=== PATIENT | female | born 1975 | race Caucasian/White ===

== ENCOUNTER 2021-05-07 05:28 | Outpatient (CLI) | payer SELFPAY ==
[~2021-05-07] VITALS: Ht 147.3 cm; Wt 81.8 kg
[2021-05-08] MEDS ORDERED: LISI5TAB20 PO (12:21)
[2021-05-08] MEDS ORDERED: NF-NORETH5 PO (12:21)
[2021-05-08] MEDS ORDERED: FERR325T18 PO (12:21)
== END 2021-05-08 12:50 ==
LOC: PREOP 05:28
PROVIDERS: ATTEND Obstetrics & Gynecology
DX: Z01.818 Encounter for other preprocedural examination (principal)

== ENCOUNTER 2021-05-14 07:08 | Day surgery (SDC) | payer BC, OTHER ==
[~2021-05-14] VITALS: Ht 147.3 cm; Wt 81.8 kg
[2021-05-14] VITALS (12 sets, daily range): BP systolic 139–198; BP diastolic 74–112
[~2021-05-14 07:08] MED LIST: FERR325T18 PO; LISI5TAB20 PO; NF-NORETH5 PO
[2021-05-14 07:29] LABS: BILIRUBIN,URINE NEGATIVE (NEGATIVE); COLOR,URINE RED; GLUCOSE, URINE (UA) NEGATIVE (NEGATIVE); KETONES,URINE 1+ (NEGATIVE); LEUKOCYTE ESTERASE ,URINE 2+ (NEGATIVE); NITRITE,URINE POSITIVE (NEGATIVE); PROTEIN,URINE 2+ (NEGATIVE)
[2021-05-14 07:44] LABS: BACTERIA,URINE FEW /HPF; RBC,URINE TNTC /HPF
[2021-05-14 07:45] LABS: SQUAMOUS EPITHELIAL CELL,UR RARE /HPF
[2021-05-14] MEDS ORDERED: MIDAZOLAM 2 MG/2 ML (VERSED) VIAL ONE ×2 (07:51→07:55)
[2021-05-14] MEDS ORDERED: ceFAZolin 2 GM IV Premixed 50 ML ONE (07:52)
[2021-05-14 07:54] LABS: BASOPHILS # (AUTO) 0.1 10^3/uL (0.0-0.1); BASOPHILS % (AUTO) 1 % (0-10); EOSINOPHILS # (AUTO) 0.2 10^3/uL (0.0-0.3); EOSINOPHILS % (AUTO) 2 % (0-10); HEMATOCRIT 41 % (35-52); LYMPHOCYTES # (AUTO) 1.8 10^3/uL (1.0-4.0); LYMPHOCYTES % (AUTO) 20 % (12-44); MEAN CORPUSCULAR HEMOGLOBIN 26 pg (25-34); MEAN CORPUSCULAR HGB CONC 32 g/dL (32-36); MEAN CORPUSCULAR VOLUME 81 fL (80-99); MEAN PLATELET VOLUME 10.5 fL (9.0-12.2); MONOCYTES # (AUTO) 0.7 10^3/uL (0.0-1.0); MONOCYTES % (AUTO) 7 % (0-12); NEUTROPHILS # (AUTO) 6.3 10^3/uL (1.8-7.8); NEUTROPHILS % (AUTO) 70 % (42-75); PLATELET COUNT 327 10^3/uL (130-400)
[2021-05-14] MEDS ORDERED: fentaNYL INJ 100 MCG/2 ML AMP ONE (07:55)
[2021-05-14] MEDS ORDERED: LIDOCAINE PF 2% 5 ML (XYLOCAINE) VIAL ONE (07:55)
[2021-05-14] MEDS ORDERED: ONDANSETRON 4 MG/2 ML (SDV) Z0FRAN ONE (07:55)
[2021-05-14] MEDS ORDERED: SEVOFLURANE (ULTANE) 15 ML INHAL SOLN ONE ×2 (07:55→11:32)
[2021-05-14] MEDS ORDERED: proPOfol 200 MG/20 ML (DIPRIVAN) VIAL IV ONE (07:55)
[2021-05-14] MEDS ORDERED: ROCURONIUM 10 MG/ML 5 ML SYRINGE IV ONE (07:55)
[2021-05-14 08:00] LABS: CLARITY,URINE SL CLOUDY
[2021-05-14] MEDS: LACTATED RINGERS 1,000 ML IV PRN ×2 (08:10→09:59)
[2021-05-14] MEDS ORDERED: ceFAZolin 2 GM IV Premixed 50 ML IV ONE (08:15)
[2021-05-14] MEDS ORDERED: MIDAZOLAM 2 MG/2 ML (VERSED) VIAL IVP ONE (08:15)
--- NOTE | 2021-05-14 08:54 | Progress Note-Pre Operative ---
Pre-Operative Progress Note H&P Reviewed The H&P was reviewed, patient examined and no changes noted. Date Seen by Provider: May 14, 2021 Time Seen by Provider: 07:15 Date H&P Reviewed: May 14, 2021 Time H&P Reviewed: 07:15 Pre-Operative Diagnosis: UTERINE FIBROIDS ISABEL ALFORD DO May 14, 2021 08:53
[2021-05-14] MEDS ORDERED: BUPIVACAINE 0.5% 30 ML (SENSORCAINE) VIAL ONE (09:30)
[2021-05-14] MEDS ORDERED: GLYCOPYRROLATE 0.2 MG/ML (ROBINUL) 2 ML VIAL ONE (11:10)
[2021-05-14] MEDS ORDERED: NEOSTIGMINE 3 MG/3 ML VIAL ONE (11:10)
--- NOTE | 2021-05-14 11:27 | Operative Report ---
Operative Report Date of Procedure/Surgery May 14, 2021 Surgeon (s) ISABEL ALFORD DO [employer]vest Crew Supervisor (s): NA Post-Operative Diagnosis uterine fibroids, enlarged uterus, boggy uterus, bilateral hydrosalpinges, bilateral peritubal cysts perirectal and colonic adhesions 349 grams Procedure Performed RaTH, bilateral salpingectomy, excision of peritubal cysts > 250 grams Description of Procedure Anesthesia Type: General Estimated blood loss (mL): 100 Specimen(s) collected/removed uterus, bilateral tubes and peritubal cysts Description of the Procedure After informed consent was obtained, patient was taken into the operating room where general anesthetic was found to be adequate. She was prepped and draped in the usual sterile fashion in the dorsal lithotomy position. A Angel catheter was placed. A speculum was placed in the vagina. The cervix was visualized and the anterior lip was grasped with a sharp toothed tenaculum. The uterus was sounded and depth was approximately 8 centimeters. I placed the Maryan device (8 cm) and a 4.0 cm collar was advanced over the cervix. the cervix was wide and irregular with naothian cysts. There was a large cyst on the anterior lip that cause the cervix to appear prolapsed further than it is. But it does prolapse to 1 cm inside the introitus. I inserted the Maryan without difficulty, inflating the balloon and securing it around the fornix of the cervix. The collar was then secured with sutures at 12 o'clock. Attention was then turned to the patient's abdomen. The skin was injected with 0.5% Marcaine. A supraumbilical incision was made about 8 mm in length. A Veress needle was inserted and I confirmed intraabdominal placement with a drop in pressure and the saline drop test. The opening pressure was 8 mmHg. I then insufflated the abdomen to a maximum of 15 mmHg with warmed CO2 gas. I placed an additional 8 mm trocar approximately 15 cm lateral to the umbilicus on the left. The second robotic port was placed about 15 cm lateral to the right of the umbilical placement. This was an 8 mm trocar. These were placed under direct visualization of the laparoscope. 0.5% Marcaine was injected prior to placement of all trocars. I confirmed that the procedure could be completed robotically. The uterus was quite large. Large that anticipated as it is boggy and retroflexed. approximately 18-20 weeks sized. As she is quite short waisted, the supraumbilical port was just above the fundus. Due to the size and concern that it may be difficult to remove intact through the vagina, I placed an additional 12 mm trocar in the right upped quadrant to allow an assist port. This was placed under direct visualization. When all placements were confirmed, the patient was placed in steep Trendelenburg allowing adequate visualization and the robot was brought in for docking. The docking was accomplished without difficulty. I then took over the command of the robot utilizing the synchroseal and mon opolar debra. I proceeded with a bilateral salpingectomy. She has had a previous partial salpingectomy and the proximal ends of the tubes appeared dilated (hydrosalpinx). I addition, there were several peritubal cysts on each tubal remnant. In addition there apeared to be a cyst arising from the left ovary, but after some dissection, it was noted that this was a peritubal cyst that was adherent to the ovary. At this point, I incised the mesosalpinx bilaterally with the monopolar debra. Then I grasped the round ligaments bilaterally and cauterized with bipolar cautery and then cut with my debra. I then grasped the uterine ovarian ligaments separately bilaterally and cauterized and cut with the synchroseal. I then moved my dissection to the posterior leaves of the broad ligament. I dissected the posterior leaves of the broad ligament off the uterine arteries skeletonizing them bilaterally. There were some filmy adhesions in the posterior culdesac and an summer masters window on the right, but no evidence of endometriosis. There were some filmy adhesions of the rectum to the culdesac and the left pelvis and some of the lower descending colon to the same area. These were taken down bluntly. I then took a second clamp with the synchroseal and with the debra, transected the vessels away from the lateral aspect to the cervical stroma. I dissected the anterior peritoneum off the lower uterine segment. I gently pushed the bladder back off the lower uterine segment. I then dissected in a V fashion towards the midline between the uterosacral ligaments. This allowed me to skeletonize the uterine vessels bilaterally. The balloon on the MARYAN was insufflated. This allowed me to see the MARYAN circumferentially. I then performed a colpotomy posteriorly and then amputated the cervix away from the vaginal fornix. I then continued the colpotomy circumferentially. At this point, the uterus was removed through the vagina. There was concern that the uterus was too large to remove vaginally, but this was completed fairly easily and the right upper quadrant port was not needed. The tiler's assistant left a sponge in the vagina to keep the pneumoperitoneum. I then began closure of the vaginal cuff. I closed the apices of the vaginal cuff with 2-0 Vicryl V lock sutures with a colposuspension through the uterosacral ligaments. This suspended the apices of the vaginal cuff. I extended this to the midline from both sides and overlapped the V lock sutures in the midline. Excellent closure is noted and hemostasis is achieved. All the needles were removed from the patient's abdomen. Now, the robotic instruments were removed and the robot was docked back to laparoscopy. The pelvis was irrigated. There was no active bleeding noted. Bilateral ureters were seen the entire time during the surgery and were peristalsing. There was no excessive bleeding noted. The trocars were removed under direct visualization. The laparoscopic sites were visualized and found to be hemostatic. The trocar sites were injected with 0.5% Marcaine. The right upper quadrant fascial incision was closed with a figure of eight stitch of 0-Vicryl. The skin incisions were closed with 4-0 Monocryl in a subcuticular fashion and then with Dermabond. Op sites were placed over the incision sites. The instruments were removed from the vagina and I noted there were no abrasions. Sponge, lap, needle and instrument counts correct times two. Patient was awakened and taken to recovery in a stable condition. Findings of the Procedure enlarged boggy uterus, 4 cm/8 cm nabothian cysts on cervix bilateral hydrosalpinges bilateral peritubal cysts adhesions of the left tube and ovary filmy perirectal and pericolonic adhesions summer masters window on the right Allergies and Home Medications Allergies Coded Allergies: hydrocodone (Verified Allergy, Unknown, nausea/vomiting, 05/08/21) Patient Home Medication List Home Medication List Reviewed: Yes Ferrous Sulfate (Ferrous Sulfate) 325 Mg Tablet, 325 MG PO DAILY, (Reported) Entered as Reported by: ESTUARDO MEDINA on 05/08/21 1221 Lisinopril (Lisinopril) 5 Mg Tablet, 5 MG PO DAILY, (Reported) Entered as Reported by: ESTUARDO MEDINA on 05/08/21 1221 Norethindrone (Norethindrone Acetate) 5 Mg Tab, 5 MG PO DAILY, (Reported) Entered as Reported by: ESTUARDO MEDINA on 05/08/21 1221 ISABEL ALFORD DO May 14, 2021 11:27
[2021-05-14] MEDS ORDERED: ONDANSETRON 4 MG (ZOFRAN) ORAL DISSOLVE TAB PO PRN (11:30)
[2021-05-14] MEDS ORDERED: CHLORASEPTIC LOZENGE MM PRN (11:30)
[2021-05-14] MEDS ORDERED: morphine INJ 4 MG/ML 1 ML (VIAL/SYRINGE) IV PRN (11:30)
[2021-05-14] MEDS ORDERED: NALOXONE 0.4 MG/ML 1 ML (NARCAN) VIAL IV PRN (11:30)
[2021-05-14] MEDS ORDERED: KETOROLAC 30 MG/ML VIAL ONE (11:42)
[2021-05-14] MEDS ORDERED: ONDANSETRON 4 MG/2 ML (SDV) Z0FRAN IVP PRN (11:45)
[2021-05-14] MEDS ORDERED: HYDROmorphone 2 MG/ML VIAL (DILAUDID) IV ONE (11:45)
[2021-05-14] MEDS ORDERED: morphine INJ 10 MG/ML 1ML (SYR OR VIAL) IVP ONE (11:45)
[2021-05-14] MEDS ORDERED: KETOROLAC 30 MG/ML VIAL IVP ONE (11:45)
[2021-05-14] MEDS ORDERED: MEPERIDINE (DEMEROL) INJ 50 MG/ML IVP ONE (11:45)
[2021-05-14] MEDS ORDERED: HYDROmorphone 2 MG/ML VIAL (DILAUDID) ONE (11:50)
[2021-05-14] MEDS: LACTATED RINGERS 1,000 ML IV SCH ×2 (12:57→16:44)
[2021-05-14] MEDS ORDERED: lisINopril 5 MG (PRINIVIL) TABLET PO NR (13:15)
[2021-05-14] MEDS: ACETAMINOPHEN 500 MG TAB (TYLENOL) PO SCH ×2 (14:59→21:26)
[2021-05-14] MEDS: SIMETHICONE 80 MG (MYLICON) CHEW PO PRN (16:42)
[2021-05-14] MEDS ORDERED: IBUP-844 PO (18:14)
[2021-05-14] MEDS ORDERED: SMT80CT PO (18:14)
[2021-05-14] MEDS ORDERED: ACET-93 PO (18:14)
[2021-05-14] MEDS ORDERED: ONDA4TAB11 PO (18:14)
[2021-05-14] MEDS ORDERED: DOCU100C37 PO (18:14)
--- NOTE | 2021-05-14 18:16 | Discharge Inst-Women's Service ---
Discharge Inst-Women's Serv Depart Medication/Instructions New, Converted or Re-Newed RX: Transmitted to Pharmacy (oxycodone transmitted from office) Final Diagnosis abnormal uterine bleeding uterine fibroids hydrosalpinges paratubal cysts hypertension Problems Reviewed?: Yes Consults/Follow Up Additional Follow Up: Yes Activity Activity: Activity as Tolerated (no lifting over 25 lbs) Driving Instructions: No Driving for 1 Week Nothing Inside Vagina: No Douching, No [employer], No Tampons Diet Discharge Diet: No Restrictions Symptoms to Report to : Swelling Increased, Bleeding Excessive, Pain Increased, Fever Over 101 Degrees F, Vaginal Bleeding Increase, Cramps in Feet or Legs, Vaginal Discharge Foul For Any Problems or Questions: Contact Your Physician Skin/Wound Care Infection Signs and Symptoms: Increased Redness, Foul Odor of Wound, Increased Drainage, Skin Itchy or Has a Rash, Increased Swelling, Temperature Above 101 F Operative Area Clean and Dry: Keep Incision Clean/Dry, You May Remove Bandage (in 72 hours or if soiled or wet) Stitches/Elizabeth/Dermabond: Dermabond Bathing Instructions: ISABEL Graham DO May 14, 2021 18:16
[2021-05-14] MEDS ORDERED: NITR100C10 PO (18:20)
[2021-05-14] MEDS: KETOROLAC 30 MG/ML VIAL IV SCH (18:21)
[2021-05-14 18:25] LABS: BASOPHILS % (AUTO) 0 % (0-10); EOSINOPHILS % (AUTO) 0 % (0-10); HEMATOCRIT 37 % (35-52); HEMOGLOBIN 11.6 g/dL (11.5-16.0); LYMPHOCYTES # (AUTO) 0.8 10^3/uL (1.0-4.0); LYMPHOCYTES % (AUTO) 6 % (12-44); MEAN CORPUSCULAR HEMOGLOBIN 26 pg (25-34); MEAN CORPUSCULAR HGB CONC 31 g/dL (32-36); MEAN CORPUSCULAR VOLUME 83 fL (80-99); MEAN PLATELET VOLUME 9.7 fL (9.0-12.2); MONOCYTES # (AUTO) 0.1 10^3/uL (0.0-1.0); MONOCYTES % (AUTO) 1 % (0-12); NEUTROPHILS # (AUTO) 11.6 10^3/uL (1.8-7.8); NEUTROPHILS % (AUTO) 92 % (42-75); PLATELET COUNT 256 10^3/uL (130-400); WHITE BLOOD COUNT 12.5 10^3/uL (4.3-11.0)
[2021-05-14 18:38] LABS: CALCIUM 8.8 MG/DL (8.5-10.1)
[2021-05-14 18:42] LABS: CREATININE SERUM 0.87 MG/DL (0.60-1.30)
[2021-05-14 18:53] LABS: LYMPHOCYTES % (MANUAL) 6 %; NEUTROPHILS % (MANUAL) 94 %; RBC MORPH NORMAL
[2021-05-14] MEDS: DOCUSATE SODIUM 100 MG (COLACE) CAP PO SCH (21:26)
[2021-05-14] MEDS: NITROFURANTOIN 100 MG (MACROBID) CAPSULE PO SCH (21:26)
[2021-05-15] MEDS: KETOROLAC 30 MG/ML VIAL IV SCH ×2 (00:15→06:31)
[2021-05-15 00:17] VITALS: BP 152/80
[2021-05-15] MEDS: LACTATED RINGERS 1,000 ML IV SCH (03:38)
[2021-05-15 05:00] VITALS: BP 134/64
[2021-05-15] MEDS: ACETAMINOPHEN 500 MG TAB (TYLENOL) PO SCH (05:06)
[2021-05-15 07:45] VITALS: BP 176/89
[2021-05-15] MEDS: NITROFURANTOIN 100 MG (MACROBID) CAPSULE PO SCH (08:07)
[2021-05-15] MEDS: SIMETHICONE 80 MG (MYLICON) CHEW PO PRN (08:07)
[2021-05-15] MEDS: DOCUSATE SODIUM 100 MG (COLACE) CAP PO SCH (08:07)
[2021-05-15] MEDS ORDERED: LISINOPRIL 5 MG PO ONE (09:45)
[2021-05-15 10:20] VITALS: BP 176/89
[2021-05-15] MEDS ORDERED: IBUPROFEN 600 MG (MOTRIN) TAB PO SCH (12:00)
--- NOTE | 2021-05-15 17:58 | Progress Note ---
Standard Progress Note Progress Notes/Assess & Plan Date Seen by a Provider: May 15, 2021 Time Seen by a Provider: 08:35 Progress/Assessment & Plan S: pain well-controlled, carole PO, able to void, (+)flatus, ambulating. No c/o O: VSS, AF Gen: A&O x 3, NAD Chest: nonlabored Abd: soft, nondistended, ATTP Inc: bandages in place, no erythema noted Ext: nontender A: s/p RALH POD#1 doing well P: anticipate dismissal this morning with routine postop care MEET SNYDER MD May 15, 2021 17:58
--- NOTE | 2021-05-16 09:47 | Anesthesia-General Post-Op ---
General Patient Condition Mental Status/LOC: Same as Preop Cardiovascular: Satisfactory Nausea/Vomiting: Absent Respiratory: Satisfactory Pain: Controlled Complications: Absent Post Op Complications Complications None Follow Up Care/Instructions Patient Instructions None needed. Anesthesia/Patient Condition Patient Condition Patient is doing well, no complaints, stable vital signs, no apparent adverse anesthesia problems. No complications reported per nursing. RIC DIA CRNA May 16, 2021 09:47
== END 2021-05-15 10:20 | disposition home or self-care (01) ==
LOC: SDC 07:08 → WS 12:51 → SDC 05-15 10:20
PROVIDERS: ATTEND Obstetrics & Gynecology
DX: D25.1 Intramural leiomyoma of uterus (principal); D25.2 Subserosal leiomyoma of uterus; N83.6 Hematosalpinx; N83.8 Other noninflammatory disorders of ovary, fallopian tube and broad ligament; N85.2 Hypertrophy of uterus; N85.8 Other specified noninflammatory disorders of uterus; N70.11 Chronic salpingitis; K66.0 Peritoneal adhesions (postprocedural) (postinfection); E66.9 Obesity, unspecified; D64.9 Anemia, unspecified; Z98.51 Tubal ligation status; Z68.39 Body mass index [BMI] 39.0-39.9, adult
CPT/HCPCS: 36415; 80048; 81000; 84703; 85007; 85025; 85027; 86850; 86900; 86901; 87081; 87088; 88307; 88341; 88342; 94664